=== PATIENT | male | born 1960 | race Caucasian/White ===

== ENCOUNTER 2023-06-18 07:59 | Emergency (ER) | payer OTHER, SELFPAY ==
[2023-06-18] VITALS (29 sets, daily range): BP systolic 130–157; BP diastolic 81–111; PULSE 63–80; RESP 16–18; TEMP 36.7; O2SAT 96–99; BMI 30.9
--- NOTE | 2023-06-18 08:34 | XR_ITS ---
The [address] [address] Patient Name: DOMINGO YANG MRN: [id number] date: 1960 Sex: M Assigned Patient Location: ER Current Patient Location: ER Accession/Order Number: [id number] Exam Date: 06/18/2023 08:28 Report Date: 06/18/2023 08:44 At the request of: MIKI NOVAK Procedure: XR chest 2V EXAM: Chest x-ray HISTORY: . CP . COMPARISON: None. TECHNIQUE: Frontal and lateral chest FINDINGS: Heart and vascularity are unremarkable. Lungs are free of focal infiltrates. No acute bony abnormality is appreciated. XR/XR chest 2V IMPRESSION: No acute heart or lung disease identified. Electronically authenticated by: NELSON BERRY Date: 06/18/2023 08:44
[2023-06-18] MEDS: 0.9 % SODIUM CHLORIDE 1,000 ML 1000 ML IV (08:36)
[2023-06-18] MEDS: ASPIRIN 81 MG TAB.CHEW 162 MG PO (08:36)
--- NOTE | 2023-06-18 08:57 | ED_ITS ---
HPI - General Adult General Chief complaint: Chest Pain Stated complaint: CHEST PAIN Time Seen by Provider: 06/18/23 08:12 Source: patient Mode of arrival: walk-in Limitations: no limitations History of Present Illness HPI narrative: Patient is a 63-year-old male who is presenting to the Emergency Room today with chief complaint of intermittent chest tightness going across his right and left anterior chest wall this started last evening. The tightness lasts for 10-15 minutes. Patient has no shortness of breath, nausea, vomiting with this. Patient's done no heavy nothing or twisting or turning. Patient does have a history of acid reflux, he does get similar pains of this often where he typically will take a Rolaids and it goes away. However, patient's tightness across both sides of his chest and echo a last night or this morning. Patient stated the intermittent pain lasted throughout the night. Patient had at this morning was getting ready for work, it was not improving, CK and the Emergency Room with his . Patient had a cardiac catheter back in 2009 with one stent does placing [place]. Patient was in the [employer]. Patient had a 2nd cardiac catheter 1.5 years later and approximately 2011 because he was having chest pain and tightness at that time, neck cardiac catheter was negative. Patient does take a baby aspirin. Patient takes medication for cholesterol, no hypertension, no diabetes. No history of tobacco use or cocaine use ever. Patient does have a significant family history of cardiac dissease. Patient has a hard score of 3, 1 for age, 2 for risk factors of hypertension, his own cardiac history and family history . All systems are negative except as noted/marked. All systems reviewed and otherwise negative. . Nurses note and vital signs reviewed and patient is not hypoxic. General: The patient appears well and in no apparent distress. Patient is resting comfortably on cart. Patient is not toxic, lethargic, or listless Skin: Warm, dry, no pallor noted. There is no rash noted. No petechiae, purpura. Head: Normocephalic, atraumatic Eye: Normal conjunctiva, no drainage, EOMI. PERRL Ears, Nose, Mouth, and Throat: oral mucosa is moist. Nares patent. Mouth without vesicles. Cardiovascular: Regular Rate and Rhythm, no murmur, gallop, rub. Patient has no reproducible tenderness to palpation. No rash. Respiratory: Patient is in no distress, no accessory muscle use, lungs are clear to auscultation, no wheezing, rales or rhonchi Back: non-tender, no CVA tenderness bilaterally to percussion. No CT LS midline pain GI: soft, no tenderness to palpation, no masses appreciated. No rebound, guarding, or rigidity noted. No flank pain bilateral, No distention Musculoskeletal: Patient has full range of motion of all of the extremities, no motor, sensory, or focal neurological deficits Neurological: A&O x3, normal speech Psychiatric: Cooperative Related Data Home Medications Medication Instructions Recorded Confirmed aspirin 81 mg tablet,delayed 81 mg PO DAILY 06/18/23 06/18/23 release (Adult Aspirin Regimen) atorvastatin 40 mg tablet 40 mg PO DAILY 06/18/23 06/18/23 pantoprazole 40 mg tablet,delayed 40 mg PO DAILY 06/18/23 06/18/23 release Allergies Allergy/AdvReac Type Severity Reaction Status Date / Time Iodinated Contrast Media AdvReac Intermediate Verified 06/18/23 08:04 [facility] Social History Smoking status: Never smoker Exam Constitutional Vital Signs, click to edit/add: Last Vital Signs Temp 98.1 F 06/18/23 08:04 Pulse 63 06/18/23 09:51 Resp 18 06/18/23 09:51 BP 132/86 06/18/23 09:51 Pulse Ox 98 06/18/23 11:50 O2 Del Method Room Air 06/18/23 08:04 Course Vital Signs Vital signs: Vital Signs Temperature 98.1 F 06/18/23 08:04 Pulse Rate 73 06/18/23 08:04 Respiratory Rate 18 06/18/23 08:04 Blood Pressure 157/111 H 06/18/23 08:04 Pulse Oximetry 97 06/18/23 08:04 Oxygen Delivery Method Room Air 06/18/23 08:04 Temperature 98.1 F 06/18/23 08:04 Pulse Rate 63 06/18/23 09:51 Respiratory Rate 18 06/18/23 09:51 Blood Pressure 132/86 06/18/23 09:51 Pulse Oximetry 98 06/18/23 11:50 Oxygen Delivery Method Room Air 06/18/23 08:04 Medical Decision Making MDM Narrative Medical decision making narrative: We discussed options of admission, transfer, or discharge of falling and was given clinic physician. At 10:00 AM, we paged his auto repair shop manager from the Coumadin clinic, Lisseth Batres. Patient was given baby aspirin prophylactically. Patient's initial cardiac workup was negative. Patient is having a 2nd troponin done and a page to her auto repair shop manager from the [facility]. 1230 Patient had 2 sets of cardiac enzymes were negative. We have paged patient's auto repair shop manager since 10 AM, with no return phone call. We have spoken to staff several times, stating that she was in surgery leg caused back between cases. I talked the patient again, his heart score is 3. Patient does not want to be admitted to the hospital, he is not wanted to be transferred. Patient states he did not have much pain or tightness across his chest in the past few hours, he feels safe going home. Patient was extremely thankful for all the updates and time spent at bedside. Patient understands the symptoms of why to return back to the Emergency Room. Otherwise patient will call his PCP on Wednesday and follow-up as an outpatient. Patient feels comfortable going home. Patient understands that it is safe to be admitted for observation to rule out EKGs, cardiac enzymes, and secure follow-up. This is what I recommended to the patient For observation admission. Patient understands, but declines. Patient has a functional decision capacity to declined admission to the hospital to rule out acute coronary syndrome. Patient states that he will come back if his symptoms worsen, he is very thankful for time spent at bedside as was his .. Lab Data Labs: Lab Results 06/18/23 06/18/23 Range/Units 08:20 10:17 Sodium 139 (136-145) mmol/L Potassium 4.1 (3.5-5.1) mmol/L Chloride 103 (98-107) mmol/L Carbon Dioxide 29.6 (21.0-32.0) mmol/L Anion Gap 10.5 BUN 15.0 (7.0-18.0) mg/dL Creatinine 1.17 (0.70-1.30) mg/dL Est GFR ( Amer) >60 (>=60) Est GFR (Non-Af Amer) >60 (>=60) BUN/Creatinine Ratio 12.8 Glucose 93 (74-106) mg/dL Calcium 9.7 (8.5-10.1) mg/dL Total Bilirubin 0.8 (0.2-1.0) mg/dL AST 20 (15-37) U/L ALT 43 (16-63) U/L Alkaline Phosphatase 61 (46-116) U/L Troponin I High Sens 5.8 5.4 (4.0-76.1) pg/mL NT-Pro-B Natriuret Pep 45.0 (<=900.0) pg/mL Total Protein 7.3 (6.4-8.2) g/dL Albumin 4.1 (3.4-5.0) g/dL Globulin 3.2 g/dL Albumin/Globulin Ratio 1.3 Lipase 89.0 (73.0-393.0) U/L ECG Data Attestation: I personally reviewed and interpreted this ECG as follows: (EKG interpretation. Normal sinus rhythm at 73 beats a minute. Normal axis deviation. Baseline shows no acute ST elevation, nonspecific ST changes. QTC of 400.) Discharge Plan Discharge Chief Complaint: Chest Pain Clinical Impression: Chest pain Patient Disposition: Home, Self-Care Time of Disposition Decision: 12:29 Condition: Good Prescriptions / Home Meds: No Action atorvastatin 40 mg tablet 40 mg PO DAILY pantoprazole 40 mg tablet,delayed release (DR/EC) 40 mg PO DAILY aspirin [Adult Aspirin Regimen] 81 mg tablet,delayed release (DR/EC) 81 mg PO DAILY Instructions: Chest Pain (ED) Additional Instructions: If symptoms return and are significant, please return the Emergency Room for further testing. Call your heart physician on Wednesday for follow-up appointment as well. You have had 2 sets of cardiac troponins that are negative. Your heart score is 3. Stand Alone Forms: Portal Instructions Referrals: BALAJI ACOSTA [Primary Care Provider] - 1 week
[2023-06-18 09:00] LABS: Alanine Aminotransferase 43 U/L (16-63); Albumin Globulin Ratio 1.3; Albumin Level 4.1 g/dL (3.4-5.0); Alkaline Phosphatase 61 U/L (46-116); Anion Gap 10.5; Aspartate Amino Transferase 20 U/L (15-37); BUN Creatinine Ratio 12.8; Bilirubin Total 0.8 mg/dL (0.2-1.0); Calcium 9.7 mg/dL (8.5-10.1); Carbon Dioxide 29.6 mmol/L (21.0-32.0); Chloride 103 mmol/L (98-107); Estimated GFR (African America >60 (>=60); Estimated GFR (Non-African Ame >60 (>=60); Globulin 3.2 g/dL; Glucose 93 mg/dL (74-106); Potassium 4.1 mmol/L (3.5-5.1); Sodium 139 mmol/L (136-145); Total Protein 7.3 g/dL (6.4-8.2); Troponin I High Sensitivity 5.8 pg/mL (4.0-76.1)
--- NOTE | 2023-06-18 10:05 | ECG_ITS ---
The [facility] Test Date: 2023-06-18 Pat Name: DOMINGO YANG Department: Room: - Gender: Male [employer]: : 1960 Requested By: [id number] Order Number: [id number] Reading MD: ODELL GREWAL Measurements Intervals [place] Rate: 73 P: 47 MD: 170 QRS: 40 QRSD: 102 T: 70 QT: 374 QTc: 400 Interpretive Statements 1100 Sinus rhythm 1102 Sinus arrhythmia 4068 Nonspecific [place] abnormality 9130 borderline ECG No previous ECG available for comparison Electronically Signed On 06-19-2023 12:33:13 EDT by ODELL GREWAL
[2023-06-18 11:03] LABS: Troponin I High Sensitivity 5.4 pg/mL (4.0-76.1)
== END 2023-06-18 12:39 | disposition home or self-care (01) ==
PROVIDERS: Emergency Provider Emergency Medicine; Family Provider Family Medicine; PCP Nurse Practitioner Family
DX: R07.9 Chest pain, unspecified (principal); K21.9 Gastro-esophageal reflux disease without esophagitis; Z95.5 Presence of coronary angioplasty implant and graft; Z79.82 Long term (current) use of aspirin; Z79.899 Other long term (current) drug therapy
CPT/HCPCS: 36415; 71046; 80053; 83690; 83880; 84484; 93005; 99285